=== PATIENT | male | born 1960 | race Caucasian/White ===

== ENCOUNTER → 2021-05-24 17:41 | Outpatient (CLI) | payer BC, SELFPAY ==
[2021-05-24 18:20] LABS: Basophils # 0.1 K/mm3 (0-0.2); Basophils % 1.4 % (0.1-2.0); Eosinophils # 0.2 K/mm3 (0.0-0.4); Eosinophils % 3.9 % (0.1-12.0); Hematocrit 29.7 % (42.0-52.0); Hemoglobin 8.1 g/dL (14.1-18.0); Lymphocytes % 44.1 % (10-50); Mean Corpuscular HGB Conc 27.3 g/dL (31.8-35.4); Mean Corpuscular Hemoglobin 19.5 pg (27.0-31.2); Mean Corpuscular Volume 71.6 fl (80-94); Mean Platelet Volume 8.9 fl (7.4-10.4); Monocytes # 0.3 K/mm3 (0.1-1.0); Monocytes % 5.9 % (1.7-9.3); Neutrophils # 2.1 K/mm3 (1.8-7.8); Neutrophils % 44.8 % (37.0-80.0); Platelet Count 402 K/mm3 (142-424); Red Blood Count 4.14 M/mm3 (4.60-6.20); Red Cell Distribution Width 19.6 % (11.5-17.5); White Blood Count 4.6 K/mm3 (4.8-10.8)
[2021-05-24 18:27] LABS: Alanine Aminotransferase 20 U/L (12-78); Albumin Level 4.5 g/dl (3.5-5.0); Albumin/Globulin Ratio 1.8 (1.1-1.8); Alkaline Phosphatase 56 U/L (38-126); Anion Gap 10.5 mEq/L (5-15); Aspartate Amino Transferase 44 U/L (17-59); Bilirubin,Total 0.6 mg/dl (0.2-1.3); Blood Urea Nitrogen 9 mg/dl (9-20); Calcium 9.3 mg/dl (8.4-10.2); Carbon Dioxide 26 mmol/L (22.0-30.0); Chloride 107 mmol/L (98-107); Estimated Glomerular Filt Rate 69 ml/min (>60); GFR (African American) 83 ML/MIN (>60); Globulin 2.5 g/dL (1.3-3.2); Glucose 86 mg/dl (74-100); Magnesium 1.9 mg/dl (1.6-2.3); Potassium 4.5 mmoL/L (3.5-5.1); Sodium 139 mmol/L (136-145)
== END ==
PROVIDERS: Visit Provider Family Medicine
DX: R56.9 Unspecified convulsions (principal)
CPT/HCPCS: 80053; 83735; 85025

== ENCOUNTER → 2021-06-01 12:51 | Outpatient (CLI) | payer BC, SELFPAY ==
[2021-06-01 14:04] LABS: Total Iron Binding Capacity 495 ug/dL (261-462)
[2021-06-01 15:30] LABS: Vitamin B12 > 1000 pg/mL (239-931)
[2021-06-01 15:47] LABS: Iron 15 ug/dL (49-181)
[2021-06-01 16:22] LABS: Ferritin 4.14 ng/ml (17.9-464)
== END ==
PROVIDERS: Visit Provider Family Medicine
DX: D64.9 Anemia, unspecified (principal)
CPT/HCPCS: 82607; 82728; 82746; 83540; 83550

== ENCOUNTER → 2021-06-08 13:00 | Outpatient (CLI) | payer BC, SELFPAY ==
--- NOTE | 2021-06-08 13:01 | CA_ITS ---
APPROVED REPORT EXAM: Comprehensive 2D, Doppler, and color-flow Echocardiogram Business Services Director: Alexa Rodriguez RVT Ht: 6 ft 0 in Wt: 253lbs BSA: 2.35 BP: 125/86 mmHg Indications: SEIZURE,SYNCOPE,ANEMIA 2D Dimensions LVOT 2.32 cm (M/F) 1.5-2.5 LA Volume 74.00 mL LA Volume Index 31.48 mL/m2 (M/F) 16-34 M-Mode Dimensions RVDd 2.21 cm (0.9-2.6) LA Diam 4.64 cm (1.9-4.0) LVDd 3.26 cm (3.5-5.7) Ao Diam 3.67 cm (2.0-3.7) LVDs 1.57 cm (3.5-5.7) IVSd 1.77 cm (0.6-1.1) PWd 2.33 cm (0.6-1.1) EF (Teich) 84.10% FS 51.80% EDV (Teich) 42.80 mL TAPSE 2.81 (<1.7) ESV (Teich) 6.80 mL LV Diastology E Decel Time 257.00 (160-240 msec) E/A Ratio 1.5 MED E' 7.30 (< 7 cm/sec) E'/MED E' Ratio 17.49 (>14) LAT E' 8.40 (<10 cm/sec) E/LAT E' Ratio 15.20 (>14) Aortic Valve AO Peak GR. 6.70 mmHg Mitral Valve MV E Max Xavier. 128.00 (40-130 cm/s) MV A Velocity 85.00 (40-130 cm/s) E/A Ratio 1.51 MV Decel. Time 257.00 (160-240 ms) MV PHT 75.00 ms Pulmonary Valve PV Peak Velocity 78.00 (50-150 cm/s) Tricuspid Valve TR P. Velocity 151.00 cm/s RAP Estimate 10.00 mmHg RVSP 19.20 mmHg Left Ventricle Left atrium normal size, left ventricle is normal size, there is no concentric left ventricular hypertrophy, visually estimated ejection fraction 55% with no regional wall motion abnormality, there is systolic anterior motion of the mitral valve leaflets seen, there is no intracavitary gradient seen. Diastolic parameters are inconclusive. Right Ventricle Right atrium and right ventricle are normal size and contractility. Aortic Valve Aortic valve is minimally thickened and fibrosed. There is no aortic stenosis or aortic insufficiency. Mitral Valve Mitral valve has mild systolic anterior motion there is no mitral stenosis or mitral regurgitation. Tricuspid Valve Tricuspid valve grossly normal. There is no significant tricuspid regurgitation seen. Pulmonic Valve Pulmonic valve is poorly visualized. Great Vessels Aortic root is normal size. Inferior vena cava is normal size with normal inspiratory collapse. Pericardium No significant pericardial effusion noted. Conclusion 1. Normal left ventricular size, preserved left ventricular systolic function, visually estimated ejection fraction 55% with no regional wall motion abnormality, diastolic parameters are inconclusive. 2. Systolic anterior motion of the mitral valve leaflet, there is no dynamic left ventricular outflow obstruction seen. 3. No significant mitral or tricuspid regurgitation. 4. No significant pericardial effusion. 5. Inferior vena cava normal size with normal inspiratory collapse. Electronically signed by : Sky Tirado MD 06/08/2021 13:45:46
--- NOTE | 2021-06-08 14:28 | CT_ITS ---
PROCEDURE: CT HEAD/BRAIN WO/W CON CLINICAL INDICATION: seizure COMPARISON: No exams were available for comparison TECHNIQUE: IV Contrast: 100ML Isovue 370 Axial images obtained. All CT scans at the facility use one or more dose reduction, viz: automated exposure control, ma/kV adjustment per patient size (including targeted exams where dose is matched to indication, i.e. head), or iterative reconstruction technique. FINDINGS: No midline shift, mass effect, intracranial hemorrhage, hydrocephalus, or extra-axial fluid collection is evident. No enhancing lesions are evident. The calvarium has an unremarkable appearance. No mastoid effusion. No sinus air-fluid level. Mild mucosal thickening floor the right maxillary sinus. IMPRESSION: Negative CT head without and with contrast Dictated by: Sd Snider MD 06/08/2021 16:59 Sd Snider MD in [place] 06/08/2021 16:59
[2021-06-08 14:59] LABS: Chloride 106 mmol/L (98-107); Potassium 4.5 mmoL/L (3.5-5.1); Sodium 140 mmol/L (136-145)
[2021-06-08 15:02] LABS: Blood Urea Nitrogen 11 mg/dl (9-20); Estimated Glomerular Filt Rate 69 ml/min (>60); GFR (African American) 83 ML/MIN (>60)
[2021-06-08 15:03] LABS: Anion Gap 12.5 mEq/L (5-15); Calcium 8.9 mg/dl (8.4-10.2); Carbon Dioxide 26 mmol/L (22.0-30.0); Glucose 95 mg/dl (74-100)
== END ==
PROVIDERS: PCP Family Medicine; Visit Provider Family Medicine
DX: Z01.818 Encounter for other preprocedural examination (principal); R55 Syncope and collapse; R56.9 Unspecified convulsions
CPT/HCPCS: 36415; 70470; 80048; 93306; 95819; Q9967

== ENCOUNTER → 2021-07-03 09:19 | Outpatient (CLI) | payer BC, SELFPAY | PROVIDERS: Visit Provider Family Medicine | DX: Z01.812 Encounter for preprocedural laboratory examination (principal); Z11.52 Encounter for screening for COVID-19; Z13.810 Encounter for screening for upper gastrointestinal disorder; Z12.11 Encounter for screening for malignant neoplasm of colon | CPT/HCPCS: C9803; U0003; U0005 ==

== ENCOUNTER 2021-07-05 09:10 | Day surgery (SDC) | payer BC, SELFPAY ==
[2021-07-03 10:34] VITALS: BMI 34.3
[2021-07-05 09:35] VITALS: BP 182/93; PULSE 60; RESP 18; TEMP 36.7; O2SAT 98
[2021-07-05 10:31] VITALS: O2SAT 97
[2021-07-05 11:05] VITALS: BP 137/80; PULSE 66; RESP 18; TEMP 36.1; O2SAT 94
--- NOTE | 2021-07-05 11:05 | [facility].SCOPE ---
- Procedure: Date: 07/05/21 Patient Date of :: 1960 Procedure Performed:: Esophagogastroduodenoscopy with biopsy Colonoscopy Indications:: Anemia Performing Provider:: Rigo Escalante MD Referring Provider:: . Sedation:: Monitored anesthesia care Procedure:: After informed consent was obtained the patient was taken to the endoscopy suite. Sedation ensued after the patient was transferred to the left lateral decubitus position. Pulse, blood pressure, and oxygen saturation were monitored throughout the procedure. The endoscope was advanced beyond the duodenal bulb. Retroflexion within the gastric lumen was accomplished. The gastroscope was carefully removed. Digital rectal exam revealed no significant abnormality. The colonoscope was placed in position. The entire colon was evaluated. The colonoscope was carefully removed and the patient was transferred to recovery in stable condition. Please see findings and specimens below for detail. Findings:: Gastroesophageal junction at 35 cm Large sliding hiatal hernia No obvious ulcerations or sign of active/recent hemorrhage Hemorrhoidal tags/cushions Exceptionally poor bowel preparation Specimens:: Antral biopsy Recommendations:: Proton pump inhibition Short-term repeat colonoscopy with extended bowel preparation Hemoglobin/hematocrit repeated today Ongoing evaluation with regard to anemia to possibly include UGI/SBFT and capsule endoscopy Complications:: No immediate with the exception of poor bowel preparation dramatically limiting visualization on colonoscopy Estimated blood obtained (mL): 1
[2021-07-05 11:15] VITALS: BP 146/76; PULSE 59; RESP 18; O2SAT 93
[2021-07-05 11:25] VITALS: BP 150/87; PULSE 60; RESP 18; O2SAT 93
--- NOTE | 2021-07-05 11:35 | P.PN_ITS ---
[facility] Anesthesia Checklist - Structural Data Admitted From: Home Planned Operative Procedure/s: egd,colonoscopy Consent for Planned Operative Procedure(s) Verified: Yes - Airway Assessment C-Spine Mobility Assessed: Yes TMJ Mobility Assessed: Yes Dentition: Good Dentition - Neurological Assessment Level of Consciousness: Awake, Alert, Appropriate - Anesthesia Plan Anesthesia Risk discussed: Yes Anesthesia Plan: Verified ASA Class: III Anesthesia Type: MAC [facility] History I have reviewed the patient's past medical history: Yes Medical History: Reports:: Gastroesophageal Reflux Disease(GERD), Seizures Denies:: Cancer, Diabetes Mellitus Type 1, Diabetes Mellitus Type 2, Internal Pacemaker, MRSA *Have you ever received a pneumonia vaccine?: No *Have you received a flu vaccine this season?: No Anesthesia experience/problems:: none Other Surgeries: No: Pacemaker Amputation: No Fractures: No - *Social History Last grade of school completed: High school graduate Smoking Status: Never smoker Alcohol Intake: current Alcohol Intake Frequency:: holidays/special occasions only Substance Use Type: marijuana *Occupational Status:: employed Housing: house Household Members: family *Travel in the last 8 weeks: None Family Hx:: Cancer, Coronary Artery Disease, Diabetes
[2021-07-05 11:49] VITALS: BP 154/74; PULSE 61; RESP 18; O2SAT 94
[2021-07-05 12:04] LABS: Hematocrit 32.2 % (42.0-52.0); Hemoglobin 9.6 g/dL (14.1-18.0)
== END 2021-07-05 11:52 | disposition hospice, home (50) ==
LOC: OUTP 09:11
PROVIDERS: PCP Family Medicine; Visit Provider Surgery
PROC: 0DJ08ZZ Inspection of Upper Intestinal Tract, Via Natural or Artificial Opening Endoscopic (ICD-10-PCS; CPT 43235; principal; 2021-07-05 10:30)
DX: D64.9 Anemia, unspecified (principal); K44.9 Diaphragmatic hernia without obstruction or gangrene; K64.9 Unspecified hemorrhoids; K21.9 Gastro-esophageal reflux disease without esophagitis; R56.9 Unspecified convulsions; Z79.899 Other long term (current) drug therapy; Z80.9 Family history of malignant neoplasm, unspecified; Z82.49 Family history of ischemic heart disease and other diseases of the circulatory system; Z83.3 Family history of diabetes mellitus
CPT/HCPCS: 43239; 45378; 85014; 85018

== ENCOUNTER → 2021-07-18 09:57 | Outpatient (CLI) | payer BC, SELFPAY ==
[2021-07-18 10:54] LABS: Hematocrit 33.5 % (42.0-52.0); Hemoglobin 10.1 g/dL (14.1-18.0)
== END ==
PROVIDERS: Visit Provider Surgery
DX: D64.9 Anemia, unspecified (principal)
CPT/HCPCS: 36415; 85014; 85018

== ENCOUNTER → 2021-07-24 08:44 | Outpatient (CLI) | payer BC, SELFPAY ==
--- NOTE | 2021-07-24 08:45 | FL_ITS ---
PROCEDURE: FL UPPER GI SMALL BOWEL CLINICAL INDICATION: anemia COMPARISON: No exams were available for comparison FINDINGS: Esophagus has an unremarkable appearance. There is a medium-sized hiatal hernia containing the fundus and proximal body of the stomach. No ulcer or is evident. Unremarkable duodenum and proximal small bowel. Small bowel series: Small bowel has an unremarkable appearance. No mass, mucosal abnormality, or obstructing lesions apparent. IMPRESSION: Moderate-sized hiatal hernia otherwise unremarkable upper GI and small-bowel follow-through Dictated by: Sd Snider MD 07/24/2021 14:13 Sd Snider MD in [place] 07/24/2021 14:13
== END ==
PROVIDERS: PCP Family Medicine; Visit Provider Surgery
DX: D64.9 Anemia, unspecified (principal)
CPT/HCPCS: 74246; 74248

== ENCOUNTER → 2021-08-29 10:01 | Outpatient (CLI) | payer BC, SELFPAY ==
--- NOTE | 2021-08-29 10:01 | FL_ITS ---
FINAL REPORT CLINICAL HISTORY: . ANEMIA, UNABLE TO HAVE COLONOSCOPY FLUORO TIME: 3:45 FINDINGS: Air-contrast barium enema History: Anemia. Unable to have colonoscopy. Fluoroscopy time: 3 minutes 45 seconds. 28 radiographs were obtained. Procedure: Barium contrast was introduced into the patient's colon in retrograde fashion via gravity drip. Subsequently, air was insufflated into the colon for double contrast study. Fluoroscopic spot films and overhead radiographs were obtained. Findings: Preliminary hockey scout film is unremarkable. Retained stool obscures mucosal detail. No constricting or obstructing lesion is identified to the level of the cecum. IMPRESSION: No constricting or obstructing lesion identified to the level of cecum. Images reviewed, interpreted and dictated by Dr. Rickie Spicer. Transcribed by Terrence Addison PA-C Reviewed, Interpreted and Dictated by Rickie Spicer III, MD Transcribed by ROJELIO Gilman Authenticated by Rickie Spicer III, MD on 09/03/2021 11:11:17 [facility]
== END ==
PROVIDERS: PCP Family Medicine; Visit Provider Surgery
DX: D64.9 Anemia, unspecified (principal)
CPT/HCPCS: 74270

== ENCOUNTER → 2021-09-12 14:20 | Outpatient (CLI) | payer BC, SELFPAY ==
[2021-09-12 16:47] LABS: Hematocrit 38.4 % (42.0-52.0)
== END ==
PROVIDERS: PCP Family Medicine; Visit Provider Surgery
DX: D64.9 Anemia, unspecified (principal)
CPT/HCPCS: 36415; 85014; 85018